=== PATIENT | female | born 1950 | race African-American/Black ===

== ENCOUNTER 2018-03-29 21:41 | Inpatient (IN) | payer MEDICARE, BC ==
[~2018-03-29] VITALS: Ht 160 cm; Wt 96.2 kg
[2018-03-29] MEDS ORDERED: ALBUTEROL (0.083%) 2.5MG/3ML NEB HHN STA (22:06)
[2018-03-29] MEDS ORDERED: IPRATROPIUM BROMIDE (0.02%) 0.5MG/2.5ML NEB HHN STA (22:06)
[2018-03-29] MEDS ORDERED: MAGNESIUM 2 G PREMIX 50 ML IV STA (22:06)
[2018-03-29] MEDS ORDERED: METHYLPREDNISOLONE SOD SUCC 125 MG/2 ML VIAL IV STA (22:06)
[2018-03-29] MEDS ORDERED: LEVOFLOXACIN 500MG PREMIX 100 ML IV ONE (22:15)
[2018-03-29] MEDS ORDERED: FUROSEMIDE 20MG/2ML VIAL IVP ONE (23:00)
[2018-03-29 23:26] LABS: CHLORIDE 109 mEq/L (98-107)
[2018-03-29 23:27] LABS: PARTIAL THROMBOPLASTIN TIME 24.8 sec (23.4-31.0); PROTHROMBIN TIME 9.7 sec (9.1-11.1)
[2018-03-29 23:28] LABS: BASOPHILS % 1.5 % (0.0-2.0); EOSINOPHILS % 10.8 % (0.0-5.0); HEMATOCRIT. 40.9 % (36.0-48.0); HEMOGLOBIN. 13.2 g/dL (12.0-16.0); LYMPHOCYTES % 35.5 % (20.0-50.0); MEAN CORPUSCULAR HEMOGLOBIN 28.7 pg (28.0-32.0); MEAN CORPUSCULAR VOLUME 88.9 fL (81.0-99.0); MEAN PLATELET VOLUME 8.9 fl (7.4-10.4); MONOCYTES % 8.2 % (2.0-8.0); PLATELET 249 x1000/uL (130-400)
[2018-03-29 23:33] LABS: ETHANOL BLOOD < 10 mg/dL
[2018-03-30] VITALS (8 sets, daily range): BP systolic 149–166; BP diastolic 75–102
[2018-03-30 00:40] LABS: BG BASE EXCESS -3.2 mmol/L (-2.0-2.0); BG BILEVEL POS AIRWAY PRESSURE 15/5; BG CARBOXYHEMOGLOBIN 1.8 % (0.5-1.5); BG DEOXYHEMOGLOBIN 3.3 % (0.0-5.0); BG FRACTION INSPIRED OXYGEN 40; BG METHEMOGLOBIN 0.2 % (0.0-1.5); BG OXYGEN SATURATION 96.6 % (92.0-98.5); BG OXYHEMOGLOBIN 94.7 % (94.0-97.0); BG PCO2 51.6 mmHg (35.0-45.0); BG PH 7.285 (7.350-7.450); BG PO2 93.6 mmHg (75.0-100.0); BG SAMPLE SITE RIGHT RADIAL; BG TOTAL HEMOGLOBIN 13.4 g/dL (12.0-18.0); BG VENT MODE MASK - BIPAP; BG VENT RATE 12 set
[2018-03-30] MEDS ORDERED: IPRATROPIUM/ALBUTEROL 0.5-3(2.5)MG/3ML NEB INH PRN (01:00)
[2018-03-30] MEDS ORDERED: LORAZEPAM 0.5MG TABLET PO PRN (01:00)
[2018-03-30] MEDS ORDERED: ONDANSETRON HCL 4MG/2ML VIAL IV PRN (01:00)
[2018-03-30] MEDS ORDERED: MAGNESIUM/ALUMINUM HYDROXIDE/SIMETHICONE 30ML UDC PO PRN (01:00)
[2018-03-30] MEDS ORDERED: GUAIFENESIN 200MG/10ML SUGAR FREE UDC PO PRN (01:00)
[2018-03-30] MEDS: MAGNESIUM 1 G PREMIX 100 ML IV SCH ×2 (02:00→02:10)
[2018-03-30] MEDS ORDERED: ACETAMINOPHEN WITH CODEINE 300/30MG TABLET PO PRN (03:30)
[2018-03-30] MEDS ORDERED: POTASSIUM CHLORIDE 20MEQ TABLET SR PO SCH (04:21)
[2018-03-30] MEDS ORDERED: MVI, ADULT NO.1 10 ML, FOLIC ACID 1 MG, THIAMINE HCL 100 MG in SODIUM CHLORIDE 0.9% 1,0... IV SCH ×4 (10:00)
[2018-03-30] MEDS: METHYLPREDNISOLONE SOD SUCC 125 MG/2 ML VIAL IV SCH ×2 (11:32→18:00)
[2018-03-30] MEDS: GUAIFENESIN 600MG ER TABLET PO SCH ×2 (11:33→20:47)
[2018-03-30] MEDS: CLONIDINE 0.1MG TABLET PO PRN (11:33)
[2018-03-30] MEDS: FAMOTIDINE 20MG TABLET PO SCH ×2 (11:34→20:46)
[2018-03-30] MEDS: IPRATROPIUM/ALBUTEROL 0.5-3(2.5)MG/3ML NEB HHN SCH ×3 (11:52→20:41)
[2018-03-30] MEDS ORDERED: GABA800T97 PO (12:37)
[2018-03-30] MEDS ORDERED: IBUP-2030 MT (12:39)
[2018-03-30] MEDS ORDERED: TERBUTALINE SULFATE 1MG/ML VIAL SUBCUT NR (14:45)
[2018-03-30] MEDS ORDERED: NICOTINE 21MG PATCH TD NR (15:15)
[2018-03-30] MEDS: MONTELUKAST SODIUM 10MG TABLET PO SCH (18:00)
[2018-03-30] MEDS: ACETAMINOPHEN 325MG TABLET PO PRN (18:45)
[2018-03-30] MEDS ORDERED: MEDICATION NOT ON FORMULARY EA (Ibuprofen 1 TAB) PO PRN (19:15)
[2018-03-30] MEDS: LORATADINE 10MG TABLET PO SCH (20:47)
[2018-03-30] MEDS: LEVOFLOXACIN 500MG PREMIX 100 ML IV SCH (21:51)
[2018-03-31] VITALS (12 sets, daily range): BP systolic 142–164; BP diastolic 72–88
[2018-03-31] MEDS: IPRATROPIUM/ALBUTEROL 0.5-3(2.5)MG/3ML NEB HHN SCH ×6 (00:13→20:14)
[2018-03-31] MEDS: METHYLPREDNISOLONE SOD SUCC 125 MG/2 ML VIAL IV SCH ×5 (00:38→23:01)
[2018-03-31 07:51] LABS: CHLORIDE 109 mEq/L (98-107)
[2018-03-31] MEDS: GUAIFENESIN 600MG ER TABLET PO SCH ×2 (08:32→20:27)
[2018-03-31] MEDS: GABAPENTIN 400MG CAPSULE PO SCH ×3 (08:32→17:21)
[2018-03-31] MEDS: NICOTINE 21MG PATCH TD SCH (08:32)
[2018-03-31] MEDS: FAMOTIDINE 20MG TABLET PO SCH ×2 (08:32→20:27)
[2018-03-31] MEDS ORDERED: MEDICATION NOT ON FORMULARY EA (Gabapentin 800 MG) PO SCH (09:00)
[2018-03-31] MEDS ORDERED: PNEUMOCOCCAL 23-VAL P-SAC VAC 0.5 ML IM ONE (09:00)
[2018-03-31] MEDS ORDERED: ENOXAPARIN 40MG/0.4ML SYR SUBCUT SCH (09:00)
[2018-03-31] MEDS: IBUPROFEN 800MG TABLET PO PRN (09:55)
[2018-03-31] MEDS ORDERED: TERBUTALINE SULFATE 1MG/ML VIAL SUBCUT NR (14:15)
[2018-03-31 16:26] LABS: CLARITY URINE CLEAR (CLEAR); COLOR URINE YELLOW (YELLOW); KETONES URINE NEGATIVE (NEGATIVE); LEUKOCYTE ESTERASE URINE NEGATIVE (NEGATIVE); NITRITE URINE NEGATIVE (NEGATIVE); OCCULT BLOOD URINE NEGATIVE (NEGATIVE); PROTEIN URINE TRACE (NEGATIVE); SPECIFIC GRAVITY URINE 1.035 (1.005-1.030); UROBILINOGEN URINE 0.2 E.U./dL (0.2-1.0)
[2018-03-31] MEDS: MONTELUKAST SODIUM 10MG TABLET PO SCH (17:21)
[2018-03-31 17:43] LABS: *AMPHETAMINES SCREEN URINE NEGATIVE (NEGATIVE)
[2018-03-31 17:44] LABS: *BARBITURATES SCREEN URINE NEGATIVE (NEGATIVE); *BENZODIAZEPINES SCREEN URINE NEGATIVE (NEGATIVE); METHADONE URINE SCREEN NEGATIVE (NEGATIVE); OPIATES URINE SCREEN NEGATIVE (NEGATIVE)
[2018-03-31 17:45] LABS: *COCAINE SCREEN URINE PRESUMTIVE POSITIVE (NEGATIVE); CANNABINOID URINE SCREEN NEGATIVE (NEGATIVE); PHENCYCLIDINE URINE SCREEN NEGATIVE (NEGATIVE)
[2018-03-31] MEDS: LORATADINE 10MG TABLET PO SCH (20:28)
[2018-03-31] MEDS: CLONIDINE 0.1MG TABLET PO PRN (20:28)
[2018-03-31] MEDS: ACETAMINOPHEN 325MG TABLET PO PRN (20:34)
[2018-03-31] MEDS: THEOPHYLLINE ANHYDROUS 80 MG/15 ML 120ML PO SCH (22:21)
[2018-03-31] MEDS: LEVOFLOXACIN 500MG PREMIX 100 ML IV SCH (22:22)
[2018-04-01] VITALS (12 sets, daily range): BP systolic 140–172; BP diastolic 66–96
[2018-04-01] MEDS: IPRATROPIUM/ALBUTEROL 0.5-3(2.5)MG/3ML NEB HHN SCH ×6 (00:28→20:31)
[2018-04-01] MEDS: METHYLPREDNISOLONE SOD SUCC 125 MG/2 ML VIAL IV SCH ×2 (05:51→12:44)
[2018-04-01] MEDS: THEOPHYLLINE ANHYDROUS 80 MG/15 ML 120ML PO SCH ×3 (05:52→22:08)
[2018-04-01] MEDS: GABAPENTIN 400MG CAPSULE PO SCH ×3 (08:50→17:28)
[2018-04-01] MEDS: NICOTINE 21MG PATCH TD SCH (08:50)
[2018-04-01] MEDS: ENOXAPARIN 30MG/0.3ML SYR SUBCUT SCH ×2 (08:50→20:05)
[2018-04-01] MEDS: GUAIFENESIN 600MG ER TABLET PO SCH ×2 (08:51→20:05)
[2018-04-01] MEDS: IBUPROFEN 800MG TABLET PO PRN (08:51)
[2018-04-01] MEDS: FAMOTIDINE 20MG TABLET PO SCH ×2 (08:52→20:05)
[2018-04-01] MEDS ORDERED: METHYLPREDNISOLONE SOD SUCC 40 MG/ML VIAL IV SCH (14:00)
[2018-04-01] MEDS: ACETAMINOPHEN 325MG TABLET PO PRN (14:53)
[2018-04-01] MEDS: MONTELUKAST SODIUM 10MG TABLET PO SCH (17:28)
[2018-04-01] MEDS: LORATADINE 10MG TABLET PO SCH (20:04)
[2018-04-01] MEDS: CLONIDINE 0.1MG TABLET PO PRN (20:05)
[2018-04-01] MEDS: METHYLPREDNISOLONE SOD SUCC 40 MG/ML VIAL IV SCH (20:05)
[2018-04-01] MEDS: LEVOFLOXACIN 500MG TABLET PO SCH (22:08)
[2018-04-02] VITALS (10 sets, daily range): BP systolic 128–165; BP diastolic 60–86
[2018-04-02] MEDS: IPRATROPIUM/ALBUTEROL 0.5-3(2.5)MG/3ML NEB HHN SCH ×6 (00:16→21:26)
[2018-04-02] MEDS: METHYLPREDNISOLONE SOD SUCC 40 MG/ML VIAL IV SCH ×3 (06:23→22:21)
[2018-04-02] MEDS: THEOPHYLLINE ANHYDROUS 80 MG/15 ML 120ML PO SCH ×3 (06:24→22:22)
[2018-04-02] MEDS: CLONIDINE 0.1MG TABLET PO PRN (06:25)
[2018-04-02] MEDS: IBUPROFEN 800MG TABLET PO PRN ×2 (06:26→17:18)
[2018-04-02] MEDS: GUAIFENESIN 600MG ER TABLET PO SCH ×2 (08:57→22:22)
[2018-04-02] MEDS: GABAPENTIN 400MG CAPSULE PO SCH ×3 (08:57→16:51)
[2018-04-02] MEDS: FAMOTIDINE 20MG TABLET PO SCH ×2 (08:57→22:22)
[2018-04-02] MEDS: ENOXAPARIN 30MG/0.3ML SYR SUBCUT SCH ×2 (08:58→22:21)
[2018-04-02] MEDS: NICOTINE 21MG PATCH TD SCH (08:58)
[2018-04-02] MEDS: MONTELUKAST SODIUM 10MG TABLET PO SCH (16:51)
[2018-04-02] MEDS: BUDESONIDE 0.5MG/2ML NEB HHN SCH (21:27)
[2018-04-02] MEDS: LEVOFLOXACIN 500MG TABLET PO SCH (22:21)
[2018-04-02] MEDS: LORATADINE 10MG TABLET PO SCH (22:21)
[2018-04-03] VITALS: BP 134/60
[2018-04-03] MEDS: IPRATROPIUM/ALBUTEROL 0.5-3(2.5)MG/3ML NEB HHN SCH ×6 (00:21→20:14)
[2018-04-03 04:00] VITALS: BP 140/74
[2018-04-03] MEDS: IBUPROFEN 800MG TABLET PO PRN ×2 (04:33→15:29)
[2018-04-03] MEDS: METHYLPREDNISOLONE SOD SUCC 40 MG/ML VIAL IV SCH ×3 (06:26→21:25)
[2018-04-03] MEDS: THEOPHYLLINE ANHYDROUS 80 MG/15 ML 120ML PO SCH ×3 (06:28→21:25)
[2018-04-03 08:00] VITALS: BP 156/72
[2018-04-03] MEDS: NICOTINE 21MG PATCH TD SCH (08:39)
[2018-04-03] MEDS: ENOXAPARIN 30MG/0.3ML SYR SUBCUT SCH ×2 (08:39→20:33)
[2018-04-03] MEDS: GABAPENTIN 400MG CAPSULE PO SCH ×3 (08:39→17:27)
[2018-04-03] MEDS: FAMOTIDINE 20MG TABLET PO SCH ×2 (08:39→20:33)
[2018-04-03] MEDS: GUAIFENESIN 600MG ER TABLET PO SCH ×2 (08:39→20:33)
[2018-04-03] MEDS: BUDESONIDE 0.5MG/2ML NEB HHN SCH ×2 (09:43→20:14)
[2018-04-03 10:36] LABS: CHLORIDE 103 mEq/L (98-107)
[2018-04-03] MEDS: CLONIDINE 0.1MG TABLET PO PRN (11:32)
[2018-04-03 12:00] VITALS: BP 138/63
[2018-04-03] MEDS ORDERED: TERBUTALINE SULFATE 1MG/ML VIAL SUBCUT NR (14:30)
[2018-04-03 16:00] VITALS: BP 105/60
[2018-04-03] MEDS: MONTELUKAST SODIUM 10MG TABLET PO SCH (17:27)
[2018-04-03] MEDS: DILTIAZEM HCL 30MG TABLET PO SCH (17:28)
[2018-04-03 20:00] VITALS: BP 137/61
[2018-04-03] MEDS: LORATADINE 10MG TABLET PO SCH (20:33)
[2018-04-03] MEDS: ACETAMINOPHEN 325MG TABLET PO PRN (20:33)
[2018-04-03] MEDS: LEVOFLOXACIN 500MG TABLET PO SCH (21:25)
[2018-04-04] MEDS: IPRATROPIUM/ALBUTEROL 0.5-3(2.5)MG/3ML NEB HHN SCH ×6 (00:14→21:18)
[2018-04-04 00:15] VITALS: BP 148/62
[2018-04-04] MEDS: IBUPROFEN 800MG TABLET PO PRN ×4 (00:33→17:17)
[2018-04-04] MEDS: DILTIAZEM HCL 30MG TABLET PO SCH ×3 (00:33→12:09)
[2018-04-04 04:00] VITALS: BP 150/75
[2018-04-04] MEDS: METHYLPREDNISOLONE SOD SUCC 40 MG/ML VIAL IV SCH ×3 (05:08→21:07)
[2018-04-04] MEDS: THEOPHYLLINE ANHYDROUS 80 MG/15 ML 120ML PO SCH ×3 (05:09→22:14)
[2018-04-04] MEDS: NICOTINE 21MG PATCH TD SCH (08:38)
[2018-04-04] MEDS: GUAIFENESIN 600MG ER TABLET PO SCH ×2 (08:38→21:45)
[2018-04-04] MEDS: ENOXAPARIN 30MG/0.3ML SYR SUBCUT SCH ×2 (08:38→21:07)
[2018-04-04] MEDS: FAMOTIDINE 20MG TABLET PO SCH ×2 (08:38→21:06)
[2018-04-04] MEDS: GABAPENTIN 400MG CAPSULE PO SCH ×3 (08:38→17:17)
[2018-04-04] MEDS: BUDESONIDE 0.5MG/2ML NEB HHN SCH ×2 (09:19→21:18)
[2018-04-04 12:00] VITALS: BP 162/82
[2018-04-04] MEDS: DILTIAZEM HCL 60MG TABLET PO SCH ×2 (14:43→21:06)
[2018-04-04 16:00] VITALS: BP 126/66
[2018-04-04] MEDS: MONTELUKAST SODIUM 10MG TABLET PO SCH (17:17)
[2018-04-04 20:00] VITALS: BP 145/67
[2018-04-04] MEDS: LORATADINE 10MG TABLET PO SCH (21:07)
[2018-04-04] MEDS: LEVOFLOXACIN 500MG TABLET PO SCH (21:45)
[2018-04-05] VITALS (7 sets, daily range): BP systolic 92–170; BP diastolic 48–75
[2018-04-05] MEDS: IPRATROPIUM/ALBUTEROL 0.5-3(2.5)MG/3ML NEB HHN SCH ×6 (01:22→20:42)
[2018-04-05] MEDS: DILTIAZEM HCL 60MG TABLET PO SCH (05:16)
[2018-04-05] MEDS: CLONIDINE 0.1MG TABLET PO PRN (05:16)
[2018-04-05] MEDS: THEOPHYLLINE ANHYDROUS 80 MG/15 ML 120ML PO SCH ×3 (05:16→21:15)
[2018-04-05] MEDS: BUDESONIDE 0.5MG/2ML NEB HHN SCH (08:00)
[2018-04-05] MEDS: METHYLPREDNISOLONE SOD SUCC 40 MG/ML VIAL IV SCH ×2 (09:25→17:17)
[2018-04-05] MEDS: ENOXAPARIN 30MG/0.3ML SYR SUBCUT SCH ×2 (09:25→21:10)
[2018-04-05] MEDS: FAMOTIDINE 20MG TABLET PO SCH ×2 (09:26→21:10)
[2018-04-05] MEDS: GUAIFENESIN 600MG ER TABLET PO SCH ×2 (09:26→21:10)
[2018-04-05] MEDS: NICOTINE 21MG PATCH TD SCH (09:26)
[2018-04-05] MEDS: GABAPENTIN 400MG CAPSULE PO SCH ×3 (09:26→17:17)
[2018-04-05] MEDS: IBUPROFEN 800MG TABLET PO PRN ×2 (09:39→17:28)
[2018-04-05] MEDS: DILTIAZEM HCL 240MG ER (24HR) PO SCH (13:30)
[2018-04-05] MEDS: MONTELUKAST SODIUM 10MG TABLET PO SCH (17:17)
[2018-04-05] MEDS: LORATADINE 10MG TABLET PO SCH (21:10)
[2018-04-05] MEDS: ACETAMINOPHEN 325MG TABLET PO PRN (21:11)
[2018-04-05] MEDS: LEVOFLOXACIN 500MG TABLET PO SCH (21:12)
[2018-04-06] VITALS: BP 155/68
[2018-04-06] MEDS: IPRATROPIUM/ALBUTEROL 0.5-3(2.5)MG/3ML NEB HHN SCH ×6 (00:46→21:12)
[2018-04-06] MEDS: IBUPROFEN 800MG TABLET PO PRN ×2 (03:28→17:15)
[2018-04-06] MEDS: CLONIDINE 0.1MG TABLET PO PRN (03:29)
[2018-04-06] MEDS: ACETAMINOPHEN 325MG TABLET PO PRN (03:42)
[2018-04-06 04:00] VITALS: BP 160/70
[2018-04-06] MEDS: THEOPHYLLINE ANHYDROUS 80 MG/15 ML 120ML PO SCH ×3 (05:51→21:23)
[2018-04-06 07:46] LABS: HEMATOCRIT 36.3 % (36.0-48.0); HEMOGLOBIN 11.9 g/dL (12.0-16.0); MEAN CORPUSCULAR HEMOGLOBIN 28.9 pg (28.0-32.0); MEAN CORPUSCULAR VOLUME 87.9 fL (81.0-99.0); PLATELET 225 x1000/uL (130-400); RED BLOOD CELL COUNT 4.13 mill/uL (4.2-5.4); RED CELL DISTRIBUTION WIDTH 15.5 % (11.6-14.6)
[2018-04-06 08:00] VITALS: BP 127/63
[2018-04-06] MEDS: NICOTINE 21MG PATCH TD SCH (08:59)
[2018-04-06] MEDS: ENOXAPARIN 30MG/0.3ML SYR SUBCUT SCH ×2 (08:59→21:22)
[2018-04-06] MEDS: FAMOTIDINE 20MG TABLET PO SCH ×2 (09:00→21:23)
[2018-04-06] MEDS: GABAPENTIN 400MG CAPSULE PO SCH ×3 (09:00→17:15)
[2018-04-06] MEDS: DILTIAZEM HCL 240MG ER (24HR) PO SCH (09:00)
[2018-04-06] MEDS: METHYLPREDNISOLONE SOD SUCC 40 MG/ML VIAL IV SCH (09:00)
[2018-04-06] MEDS: GUAIFENESIN 600MG ER TABLET PO SCH ×2 (09:06→21:23)
[2018-04-06] MEDS: DIPHENHYDRAMINE 50MG/ML VIAL IV PRN ×2 (11:03→17:15)
[2018-04-06 12:00] VITALS: BP 100/55
[2018-04-06] MEDS: BUDESONIDE 0.5MG/2ML NEB HHN SCH ×2 (13:10→21:14)
[2018-04-06 16:00] VITALS: BP 148/67
[2018-04-06] MEDS: MONTELUKAST SODIUM 10MG TABLET PO SCH (17:15)
[2018-04-06 20:00] VITALS: BP 126/56
[2018-04-06] MEDS: LORATADINE 10MG TABLET PO SCH (21:23)
[2018-04-06] MEDS: HYDROCORTISONE 1% CREAM 30GM TOP SCH (21:41)
[2018-04-06] MEDS: LEVOFLOXACIN 500MG TABLET PO SCH (23:51)
[2018-04-07] VITALS: BP 133/60
[2018-04-07] MEDS: IPRATROPIUM/ALBUTEROL 0.5-3(2.5)MG/3ML NEB HHN SCH ×5 (00:51→16:34)
[2018-04-07] MEDS: DIPHENHYDRAMINE 50MG/ML VIAL IV PRN ×2 (02:50→09:47)
[2018-04-07] MEDS: IBUPROFEN 800MG TABLET PO PRN (02:55)
[2018-04-07 04:00] VITALS: BP 151/60
[2018-04-07] MEDS: HYDROCORTISONE 1% CREAM 30GM TOP SCH ×2 (05:17→13:43)
[2018-04-07] MEDS: THEOPHYLLINE ANHYDROUS 80 MG/15 ML 120ML PO SCH ×3 (05:17→13:47)
[2018-04-07 08:00] VITALS: BP 148/70
[2018-04-07] MEDS: BUDESONIDE 0.5MG/2ML NEB HHN SCH (09:07)
[2018-04-07] MEDS: METHYLPREDNISOLONE SOD SUCC 40 MG/ML VIAL IV SCH (09:22)
[2018-04-07] MEDS: NICOTINE 21MG PATCH TD SCH (09:23)
[2018-04-07] MEDS: GABAPENTIN 400MG CAPSULE PO SCH ×3 (09:23→17:00)
[2018-04-07] MEDS: DILTIAZEM HCL 240MG ER (24HR) PO SCH (09:23)
[2018-04-07] MEDS: GUAIFENESIN 600MG ER TABLET PO SCH (09:23)
[2018-04-07] MEDS: FAMOTIDINE 20MG TABLET PO SCH (09:23)
[2018-04-07] MEDS: ENOXAPARIN 30MG/0.3ML SYR SUBCUT SCH (09:24)
[2018-04-07 12:00] VITALS: BP 137/59
[2018-04-07 15:18] VITALS: BP 137/59
[2018-04-07 16:00] VITALS: BP 116/82
[2018-04-07] MEDS: MONTELUKAST SODIUM 10MG TABLET PO SCH (17:00)
== END 2018-04-07 18:30 | disposition home or self-care (01) | DRG 871 ==
LOC: ER 21:41 → EDBD 21:41 → 5EST 23:50 → EDBEDREQTM 23:59 → EDBEDREQ 23:59 → ENRESERV 03-30 06:47 → CANRESERV 03-30 06:47 → ENRESERV 03-30 06:57 → 8WST 04-02 15:31
PROVIDERS: ADMIT Internal Medicine; ATTEND Internal Medicine
PROC: 5A09457 Assistance with Respiratory Ventilation, 24-96 Consecutive Hours, Continuous Positive Airway Pressure (ICD-10-PCS; principal; 2018-03-30)
PROC: 5A09357 Assistance with Respiratory Ventilation, Less than 24 Consecutive Hours, Continuous Positive Airway Pressure (ICD-10-PCS; 2018-04-02)
DX: A41.9 Sepsis, unspecified organism (principal); J96.00 Acute respiratory failure, unspecified whether with hypoxia or hypercapnia; J18.9 Pneumonia, unspecified organism; J44.1 Chronic obstructive pulmonary disease with (acute) exacerbation; J44.0 Chronic obstructive pulmonary disease with (acute) lower respiratory infection; J45.901 Unspecified asthma with (acute) exacerbation; I47.2 Ventricular tachycardia; E87.2 Acidosis; M19.90 Unspecified osteoarthritis, unspecified site; I10 Essential (primary) hypertension; E87.6 Hypokalemia; G89.4 Chronic pain syndrome; R07.89 Other chest pain; F17.210 Nicotine dependence, cigarettes, uncomplicated; F14.10 Cocaine abuse, uncomplicated; D72.1 Eosinophilia; T40.5X1A Poisoning by cocaine, accidental (unintentional), initial encounter; Z96.643 Presence of artificial hip joint, bilateral; Z96.653 Presence of artificial knee joint, bilateral; Y92.89 Other specified places as the place of occurrence of the external cause; Z82.5 Family history of asthma and other chronic lower respiratory diseases; Z83.3 Family history of diabetes mellitus; Z71.6 Tobacco abuse counseling; Z71.51 Drug abuse counseling and surveillance of drug abuser
CPT/HCPCS: 36415; 36600; 71045; 71250; 80048; 80053; 80305; 81003; 82375; 82805; 83605; 83690; 83735; 83880; 84484; 85025; 85027; 85610; 85730; 87040; 87086; 90732; 93005; 93306; 93970; 94618; 94640; 94644; 94660; 96365; 96375; 97162; 97166; 99291; C1893; G0482; J1200; J1650; J1940; J1956; J2920; J2930; J3105; J3411; J3475; J3490; J7030; J7050; J7611; J7620; J7626

== ENCOUNTER 2018-05-16 08:34 | Inpatient (IN) | payer MEDICARE, BC ==
[~2018-05-16] VITALS: Ht 160 cm; Wt 103.4 kg
[~2018-05-16 08:34] MED LIST: GABA800T97 PO; IBUP-2030 MT
[2018-05-16] MEDS ORDERED: ALBUTEROL (0.083%) 2.5MG/3ML NEB HHN STA ×2 (08:39→10:05)
[2018-05-16] MEDS ORDERED: METHYLPREDNISOLONE SOD SUCC 125 MG/2 ML VIAL IV STA (08:39)
[2018-05-16] MEDS ORDERED: IPRATROPIUM BROMIDE (0.02%) 0.5MG/2.5ML NEB HHN STA (08:39)
[2018-05-16 09:28] LABS: CHLORIDE 110 mEq/L (98-107)
[2018-05-16 09:34] LABS: BASOPHILS % 0.9 % (0.0-2.0); EOSINOPHILS % 12.3 % (0.0-5.0); HEMATOCRIT. 42.4 % (36.0-48.0); HEMOGLOBIN. 14.1 g/dL (12.0-16.0); LYMPHOCYTES % 41.1 % (20.0-50.0); MEAN CORPUSCULAR HEMOGLOBIN 29.6 pg (28.0-32.0); MEAN CORPUSCULAR VOLUME 89.1 fL (81.0-99.0); MONOCYTES % 7.6 % (2.0-8.0); NEUTROPHILS % 38.1 % (40.0-76.0); PLATELET 236 x1000/uL (130-400); RED BLOOD CELL COUNT 4.76 mill/uL (4.2-5.4); RED CELL DISTRIBUTION WIDTH 15.5 % (11.6-14.6)
[2018-05-16 14:00] VITALS: BP 156/63
[2018-05-16] MEDS ORDERED: IPRATROPIUM/ALBUTEROL 0.5-3(2.5)MG/3ML NEB INH PRN (14:30)
[2018-05-16] MEDS ORDERED: LORAZEPAM 0.5MG TABLET PO PRN (14:30)
[2018-05-16] MEDS ORDERED: MAGNESIUM HYDROXIDE 400MG/5ML 30ML UDC PO PRN (14:30)
[2018-05-16] MEDS ORDERED: MAGNESIUM/ALUMINUM HYDROXIDE/SIMETHICONE 30ML UDC PO PRN (14:30)
[2018-05-16] MEDS ORDERED: ACETAMINOPHEN 325MG TABLET PO PRN (14:30)
[2018-05-16] MEDS ORDERED: ONDANSETRON HCL 4MG/2ML INJ IV PRN (14:30)
[2018-05-16] MEDS ORDERED: TEMAZEPAM 15MG CAPSULE PO PRN (14:30)
[2018-05-16] MEDS ORDERED: GUAIFENESIN 200MG/10ML SUGAR FREE UDC PO PRN (14:30)
[2018-05-16] MEDS: ENOXAPARIN 30MG/0.3ML SYR SUBCUT SCH (15:33)
[2018-05-16] MEDS: FAMOTIDINE 20MG TABLET PO SCH (15:33)
[2018-05-16 15:44] VITALS: BP 156/63
[2018-05-16 16:00] VITALS: BP 151/71
[2018-05-16] MEDS: ACETAMINOPHEN WITH CODEINE 300/60MG TABLET PO PRN ×2 (16:29→22:03)
[2018-05-16] MEDS: IPRATROPIUM/ALBUTEROL 0.5-3(2.5)MG/3ML NEB HHN SCH ×2 (16:29→21:34)
[2018-05-16] MEDS: DOCUSATE SODIUM 100MG CAPSULE PO SCH (16:29)
[2018-05-16] MEDS: METHYLPREDNISOLONE SOD SUCC 40 MG/ML VIAL IV SCH (16:30)
[2018-05-16] MEDS: THEOPHYLLINE ANHYDROUS 80 MG/15 ML 120ML PO SCH (17:40)
[2018-05-16] MEDS: IBUPROFEN 400MG TABLET PO PRN (17:40)
[2018-05-16 18:00] VITALS: BP 154/82
[2018-05-16 20:00] VITALS: BP 157/76
[2018-05-16 22:00] VITALS: BP 142/69
[2018-05-16] MEDS: SODIUM CHLORIDE 0.9% INJ 3ML FLUSH IVF SCH (22:00)
[2018-05-16] MEDS: DILTIAZEM HCL 90MG TABLET PO SCH (22:04)
[2018-05-16] MEDS: GABAPENTIN 400MG CAPSULE PO SCH (22:04)
[2018-05-17] VITALS (13 sets, daily range): BP systolic 125–157; BP diastolic 58–98
[2018-05-17] MEDS: IPRATROPIUM/ALBUTEROL 0.5-3(2.5)MG/3ML NEB HHN SCH ×6 (01:01→20:43)
[2018-05-17] MEDS: METHYLPREDNISOLONE SOD SUCC 40 MG/ML VIAL IV SCH ×3 (01:29→17:00)
[2018-05-17] MEDS: DIPHENHYDRAMINE 50MG/ML VIAL IV PRN (04:09)
[2018-05-17] MEDS: SODIUM CHLORIDE 0.9% INJ 3ML FLUSH IVF SCH ×3 (06:00→21:42)
[2018-05-17] MEDS: ENOXAPARIN 30MG/0.3ML SYR SUBCUT SCH ×2 (06:02→17:01)
[2018-05-17] MEDS: GABAPENTIN 400MG CAPSULE PO SCH ×3 (06:02→21:37)
[2018-05-17] MEDS: DILTIAZEM HCL 90MG TABLET PO SCH ×3 (06:03→21:37)
[2018-05-17] MEDS: THEOPHYLLINE ANHYDROUS 80 MG/15 ML 120ML PO SCH ×2 (06:04→17:01)
[2018-05-17] MEDS: IBUPROFEN 400MG TABLET PO PRN ×2 (06:04→13:13)
[2018-05-17] MEDS: FAMOTIDINE 20MG TABLET PO SCH (08:15)
[2018-05-17] MEDS: DOCUSATE SODIUM 100MG CAPSULE PO SCH ×2 (08:15→17:00)
[2018-05-17] MEDS: LORATADINE 10MG TABLET PO SCH (08:16)
[2018-05-17] MEDS: ACETAMINOPHEN WITH CODEINE 300/60MG TABLET PO PRN ×2 (08:16→21:41)
[2018-05-17 08:42] LABS: BG BASE EXCESS -3.2 mmol/L (-2.0-2.0); BG CARBOXYHEMOGLOBIN 0.6 % (0.5-1.5); BG DEOXYHEMOGLOBIN 4.3 % (0.0-5.0); BG HCO3 ACT 22.2 mmol/L (22.0-26.0); BG METHEMOGLOBIN 0.2 % (0.0-1.5); BG OXYGEN SATURATION 95.7 % (92.0-98.5); BG OXYHEMOGLOBIN 94.9 % (94.0-97.0); BG PCO2 41.3 mmHg (35.0-45.0); BG PH 7.349 (7.350-7.450); BG PO2 82.2 mmHg (75.0-100.0); BG SAMPLE SITE LEFT RADIAL; BG TOTAL HEMOGLOBIN 13.9 g/dL (12.0-18.0); BG VENT MODE NASAL CANNULA
[2018-05-18] VITALS (11 sets, daily range): BP systolic 120–150; BP diastolic 63–89
[2018-05-18] MEDS: IPRATROPIUM/ALBUTEROL 0.5-3(2.5)MG/3ML NEB HHN SCH ×5 (00:36→15:47)
[2018-05-18] MEDS: DIPHENHYDRAMINE 50MG/ML VIAL IV PRN (00:55)
[2018-05-18] MEDS: METHYLPREDNISOLONE SOD SUCC 40 MG/ML VIAL IV SCH ×2 (00:55→09:39)
[2018-05-18] MEDS: ACETAMINOPHEN WITH CODEINE 300/60MG TABLET PO PRN (05:40)
[2018-05-18] MEDS: GABAPENTIN 400MG CAPSULE PO SCH ×2 (05:40→13:08)
[2018-05-18] MEDS: ENOXAPARIN 30MG/0.3ML SYR SUBCUT SCH (05:41)
[2018-05-18] MEDS: DILTIAZEM HCL 90MG TABLET PO SCH ×2 (05:41→13:08)
[2018-05-18] MEDS: SODIUM CHLORIDE 0.9% INJ 3ML FLUSH IVF SCH ×2 (05:42→13:12)
[2018-05-18] MEDS: THEOPHYLLINE ANHYDROUS 80 MG/15 ML 120ML PO SCH (05:43)
[2018-05-18 06:46] LABS: BASOPHILS % 0.3 % (0.0-2.0); HEMATOCRIT. 39.5 % (36.0-48.0); LYMPHOCYTES % 8.6 % (20.0-50.0); MEAN CORPUSCULAR HEMOGLOBIN 29.2 pg (28.0-32.0); MEAN PLATELET VOLUME 9.2 fl (7.4-10.4); MONOCYTES % 2.5 % (2.0-8.0); NEUTROPHILS % 88.6 % (40.0-76.0); PLATELET 256 x1000/uL (130-400); RED BLOOD CELL COUNT 4.44 mill/uL (4.2-5.4); RED CELL DISTRIBUTION WIDTH 15.4 % (11.6-14.6)
[2018-05-18 07:04] LABS: CHLORIDE 104 mEq/L (98-107)
[2018-05-18] MEDS: LORATADINE 10MG TABLET PO SCH (09:39)
[2018-05-18] MEDS: DOCUSATE SODIUM 100MG CAPSULE PO SCH (09:39)
[2018-05-18] MEDS: IBUPROFEN 400MG TABLET PO PRN (09:41)
[2018-05-18] MEDS: FAMOTIDINE 20MG TABLET PO SCH (13:09)
== END 2018-05-18 16:44 | disposition home or self-care (01) | DRG 205 ==
LOC: ER 08:41 → 3WST 10:47 → EDBEDREQ 10:50 → ENRESERV 12:08
PROVIDERS: ADMIT Internal Medicine; ATTEND Internal Medicine
PROC: 5A09357 Assistance with Respiratory Ventilation, Less than 24 Consecutive Hours, Continuous Positive Airway Pressure (ICD-10-PCS; principal; 2018-05-16)
DX: J68.0 Bronchitis and pneumonitis due to chemicals, gases, fumes and vapors (principal); J96.01 Acute respiratory failure with hypoxia; E46 Unspecified protein-calorie malnutrition; Z68.41 Body mass index [BMI] 40.0-44.9, adult; S20.212A Contusion of left front wall of thorax, initial encounter; I11.9 Hypertensive heart disease without heart failure; F17.200 Nicotine dependence, unspecified, uncomplicated; F14.10 Cocaine abuse, uncomplicated; G89.29 Other chronic pain; H26.9 Unspecified cataract; M19.90 Unspecified osteoarthritis, unspecified site; Z96.643 Presence of artificial hip joint, bilateral; Z96.653 Presence of artificial knee joint, bilateral; W18.39XA Other fall on same level, initial encounter; K30 Functional dyspepsia; F41.9 Anxiety disorder, unspecified; K59.00 Constipation, unspecified; G47.00 Insomnia, unspecified; J44.9 Chronic obstructive pulmonary disease, unspecified; Y93.89 Activity, other specified; Z82.5 Family history of asthma and other chronic lower respiratory diseases; Z79.899 Other long term (current) drug therapy; Y99.8 Other external cause status; Z83.3 Family history of diabetes mellitus; Y92.098 Other place in other non-institutional residence as the place of occurrence of the external cause
CPT/HCPCS: 36415; 36600; 71045; 71100; 80048; 80053; 82375; 82805; 83880; 84484; 85025; 93005; 94640; 94644; 94660; 96374; 99291; J1200; J1650; J2920; J2930; J7611; J7620

== ENCOUNTER 2018-07-30 15:23 | Inpatient (IN) | payer MEDICARE, BC ==
[~2018-07-30] VITALS: Ht 160 cm; Wt 90.7 kg
[2018-07-30 15:23] VITALS: BP 140/75
[2018-07-30 15:56] VITALS: BP 140/75
[2018-07-30] MEDS ORDERED: IPRATROPIUM/ALBUTEROL 0.5-3(2.5)MG/3ML NEB HHN PRN (18:00)
[2018-07-30] MEDS ORDERED: BENZONATATE 100MG CAPSULE PO PRN (18:00)
[2018-07-30] MEDS ORDERED: DEXTROSE 50% WATER 50ML SYRINGE IV PRN (18:00)
[2018-07-30] MEDS: METHYLPREDNISOLONE SOD SUCC 40 MG/ML VIAL IV SCH (18:17)
[2018-07-30] MEDS: ACETAMINOPHEN WITH CODEINE 300/30MG TABLET PO PRN (18:19)
[2018-07-30 20:00] VITALS: BP 111/63
[2018-07-30] MEDS: IPRATROPIUM BROMIDE (0.02%) 0.5MG/2.5ML NEB HHN SCH (20:15)
[2018-07-30] MEDS: AMLODIPINE 5MG TABLET PO SCH (21:00)
[2018-07-30] MEDS: BLOOD SUGAR DIAGNOSTIC STRIP TEST SCH (21:46)
[2018-07-30] MEDS: FAMOTIDINE 20MG TABLET PO SCH (21:49)
[2018-07-30] MEDS: INSULIN LISPRO 100 UNITS/ML SUBCUT SCH (21:50)
[2018-07-31] MEDS: ACETAMINOPHEN WITH CODEINE 300/30MG TABLET PO PRN ×3 (00:54→11:48)
[2018-07-31] MEDS: IPRATROPIUM BROMIDE (0.02%) 0.5MG/2.5ML NEB HHN SCH ×3 (00:59→13:59)
[2018-07-31] MEDS: METHYLPREDNISOLONE SOD SUCC 40 MG/ML VIAL IV SCH (06:51)
[2018-07-31] MEDS: BLOOD SUGAR DIAGNOSTIC STRIP TEST SCH ×4 (06:51→21:15)
[2018-07-31] MEDS: INSULIN LISPRO 100 UNITS/ML SUBCUT SCH ×5 (06:52→21:00)
[2018-07-31 07:31] LABS: HEMATOCRIT. 40.6 % (36.0-48.0); HEMOGLOBIN. 13.1 g/dL (12.0-16.0); MEAN CORPUSCULAR HEMOGLOBIN 28.6 pg (28.0-32.0); MEAN CORPUSCULAR VOLUME 88.5 fL (81.0-99.0); MEAN PLATELET VOLUME 9.1 fl (7.4-10.4); PLATELET 230 x1000/uL (130-400); RED BLOOD CELL COUNT 4.58 mill/uL (4.2-5.4); RED CELL DISTRIBUTION WIDTH 15.4 % (11.6-14.6)
[2018-07-31 07:39] LABS: CHLORIDE 110 mEq/L (98-107)
[2018-07-31 08:00] LABS: PHOSPHORUS 2.5 mg/dL (2.5-4.9)
[2018-07-31] MEDS ORDERED: LOSARTAN POTASSIUM 100 MG TABLET PO SCH (09:00)
[2018-07-31] MEDS: NICOTINE 14MG PATCH TD SCH (10:07)
[2018-07-31] MEDS: AMLODIPINE 5MG TABLET PO SCH ×2 (10:08→21:00)
[2018-07-31] MEDS: FAMOTIDINE 20MG TABLET PO SCH ×2 (10:08→21:27)
[2018-07-31] MEDS: ENOXAPARIN 40MG/0.4ML SYR SUBCUT SCH (10:19)
[2018-07-31] MEDS: LORATADINE 10MG TABLET PO SCH (11:49)
[2018-07-31 13:18] LABS: PLATELET ESTIMATE NORMAL
[2018-07-31] MEDS ORDERED: TERBUTALINE SULFATE 1MG/ML VIAL SUBCUT SCH (16:00)
[2018-07-31] MEDS: MONTELUKAST SODIUM 10MG TABLET PO SCH (17:55)
[2018-07-31] MEDS: LIDOCAINE 5% PATCH TOP SCH (17:59)
[2018-07-31] MEDS: DIPHENHYDRAMINE 25MG CAPSULE PO PRN (19:18)
[2018-07-31 20:00] VITALS: BP 108/31
[2018-07-31 20:28] LABS: FOLIC ACID (FOLATE) SERUM 12.1 ng/mL (>5.38)
[2018-07-31] MEDS: THEOPHYLLINE ANHYDROUS 80 MG/15 ML 120ML PO SCH (21:28)
[2018-07-31] MEDS: BUDESONIDE 0.5MG/2ML NEB HHN SCH (21:46)
[2018-07-31] MEDS: IPRATROPIUM/ALBUTEROL 0.5-3(2.5)MG/3ML NEB HHN SCH (21:47)
[2018-08-01] MEDS: IPRATROPIUM/ALBUTEROL 0.5-3(2.5)MG/3ML NEB HHN SCH ×4 (02:49→20:53)
[2018-08-01] MEDS: BLOOD SUGAR DIAGNOSTIC STRIP TEST SCH ×4 (06:13→21:08)
[2018-08-01] MEDS: INSULIN LISPRO 100 UNITS/ML SUBCUT SCH ×4 (06:49→21:00)
[2018-08-01] MEDS: THEOPHYLLINE ANHYDROUS 80 MG/15 ML 120ML PO SCH ×3 (06:49→21:08)
[2018-08-01] MEDS: BUDESONIDE 0.5MG/2ML NEB HHN SCH ×2 (07:19→20:52)
[2018-08-01 08:00] VITALS: BP 124/54
[2018-08-01] MEDS: ENOXAPARIN 40MG/0.4ML SYR SUBCUT SCH (09:08)
[2018-08-01] MEDS: NICOTINE 14MG PATCH TD SCH (09:09)
[2018-08-01] MEDS: LIDOCAINE 5% PATCH TOP SCH (09:09)
[2018-08-01] MEDS: FAMOTIDINE 20MG TABLET PO SCH ×2 (09:10→20:40)
[2018-08-01] MEDS: LORATADINE 10MG TABLET PO SCH (09:10)
[2018-08-01] MEDS: PREDNISONE 20MG TABLET PO SCH (09:10)
[2018-08-01] MEDS: LOSARTAN POTASSIUM 50 MG TABLET PO SCH (09:10)
[2018-08-01] MEDS: AMLODIPINE 5MG TABLET PO SCH ×2 (09:11→20:40)
[2018-08-01] MEDS: ACETAMINOPHEN WITH CODEINE 300/30MG TABLET PO PRN ×3 (09:11→20:39)
[2018-08-01] MEDS ORDERED: LIDOCAINE 5% PATCH TOP SCH ×2 (11:30→12:00)
[2018-08-01] MEDS: MONTELUKAST SODIUM 10MG TABLET PO SCH (17:35)
[2018-08-01 20:00] VITALS: BP 128/61
[2018-08-01] MEDS: DIPHENHYDRAMINE 25MG CAPSULE PO PRN (20:39)
[2018-08-02] MEDS: IPRATROPIUM/ALBUTEROL 0.5-3(2.5)MG/3ML NEB HHN SCH ×4 (02:31→20:42)
[2018-08-02] MEDS: ACETAMINOPHEN WITH CODEINE 300/30MG TABLET PO PRN ×3 (03:40→17:20)
[2018-08-02] MEDS: THEOPHYLLINE ANHYDROUS 80 MG/15 ML 120ML PO SCH ×3 (05:18→22:40)
[2018-08-02] MEDS: BLOOD SUGAR DIAGNOSTIC STRIP TEST SCH ×4 (05:31→21:00)
[2018-08-02] MEDS: BUDESONIDE 0.5MG/2ML NEB HHN SCH ×2 (07:31→20:42)
[2018-08-02 08:00] VITALS: BP 111/50
[2018-08-02 08:25] LABS: T4 FREE 0.83 ng/dL (0.76-1.46)
[2018-08-02] MEDS: NICOTINE 14MG PATCH TD SCH (08:51)
[2018-08-02] MEDS: PREDNISONE 20MG TABLET PO SCH (08:53)
[2018-08-02] MEDS: LIDOCAINE 5% PATCH TOP SCH (08:53)
[2018-08-02] MEDS: LOSARTAN POTASSIUM 50 MG TABLET PO SCH (08:53)
[2018-08-02] MEDS: LORATADINE 10MG TABLET PO SCH (08:53)
[2018-08-02] MEDS: FAMOTIDINE 20MG TABLET PO SCH ×2 (08:53→22:38)
[2018-08-02] MEDS: INSULIN LISPRO 100 UNITS/ML SUBCUT SCH ×4 (08:54→21:00)
[2018-08-02] MEDS: AMLODIPINE 5MG TABLET PO SCH ×2 (08:54→21:00)
[2018-08-02] MEDS: ENOXAPARIN 40MG/0.4ML SYR SUBCUT SCH (08:55)
[2018-08-02] MEDS: MONTELUKAST SODIUM 10MG TABLET PO SCH (16:23)
[2018-08-02 20:00] VITALS: BP 102/45
[2018-08-03] MEDS: ACETAMINOPHEN WITH CODEINE 300/30MG TABLET PO PRN ×3 (00:30→13:05)
[2018-08-03] MEDS: IPRATROPIUM/ALBUTEROL 0.5-3(2.5)MG/3ML NEB HHN SCH ×4 (01:59→21:27)
[2018-08-03] MEDS: THEOPHYLLINE ANHYDROUS 80 MG/15 ML 120ML PO SCH ×3 (05:57→21:35)
[2018-08-03] MEDS: BLOOD SUGAR DIAGNOSTIC STRIP TEST SCH ×4 (05:57→21:00)
[2018-08-03] MEDS: BUDESONIDE 0.5MG/2ML NEB HHN SCH ×2 (07:31→21:26)
[2018-08-03 08:00] VITALS: BP 126/56
[2018-08-03] MEDS: INSULIN LISPRO 100 UNITS/ML SUBCUT SCH ×4 (08:07→21:34)
[2018-08-03] MEDS: LOSARTAN POTASSIUM 50 MG TABLET PO SCH (09:00)
[2018-08-03] MEDS: ENOXAPARIN 40MG/0.4ML SYR SUBCUT SCH (09:28)
[2018-08-03] MEDS: FAMOTIDINE 20MG TABLET PO SCH ×2 (09:29→21:32)
[2018-08-03] MEDS: AMLODIPINE 5MG TABLET PO SCH ×2 (09:29→21:00)
[2018-08-03] MEDS: PREDNISONE 20MG TABLET PO SCH (09:29)
[2018-08-03] MEDS: LORATADINE 10MG TABLET PO SCH (09:29)
[2018-08-03] MEDS: LIDOCAINE 5% PATCH TOP SCH (09:30)
[2018-08-03] MEDS: NICOTINE 14MG PATCH TD SCH (09:31)
[2018-08-03] MEDS: MONTELUKAST SODIUM 10MG TABLET PO SCH (17:24)
[2018-08-03 20:00] VITALS: BP 110/52
[2018-08-03] MEDS ORDERED: BUDESONIDE 0.5MG/2ML NEB ONE (21:30)
[2018-08-04] MEDS: ACETAMINOPHEN WITH CODEINE 300/30MG TABLET PO PRN ×3 (01:04→15:22)
[2018-08-04] MEDS: IPRATROPIUM/ALBUTEROL 0.5-3(2.5)MG/3ML NEB HHN SCH ×4 (01:18→21:45)
[2018-08-04] MEDS: DIPHENHYDRAMINE 25MG CAPSULE PO PRN (02:01)
[2018-08-04 06:10] LABS: FOLICLE STIMULATING HORMONE 53.2 mIU/mL (.); PROLACTIN 14.1 ng/mL (4.8-23.3)
[2018-08-04 06:24] LABS: CLARITY URINE CLEAR (CLEAR); COLOR URINE YELLOW (YELLOW); KETONES URINE NEGATIVE (NEGATIVE); LEUKOCYTE ESTERASE URINE TRACE (NEGATIVE); NITRITE URINE NEGATIVE (NEGATIVE); OCCULT BLOOD URINE NEGATIVE (NEGATIVE); PH URINE 7.5 (4.5-8.0); PROTEIN URINE NEGATIVE (NEGATIVE); SPECIFIC GRAVITY URINE 1.017 (1.005-1.030); UROBILINOGEN URINE 0.2 E.U./dL (0.2-1.0)
[2018-08-04] MEDS: BLOOD SUGAR DIAGNOSTIC STRIP TEST SCH ×4 (06:30→21:57)
[2018-08-04] MEDS: THEOPHYLLINE ANHYDROUS 80 MG/15 ML 120ML PO SCH ×3 (06:31→22:01)
[2018-08-04] MEDS: INSULIN LISPRO 100 UNITS/ML SUBCUT SCH ×4 (06:31→21:00)
[2018-08-04 06:56] LABS: HEMATOCRIT. 39.4 % (36.0-48.0); HEMOGLOBIN. 12.9 g/dL (12.0-16.0); MEAN CORPUSCULAR HEMOGLOBIN 28.8 pg (28.0-32.0); MEAN PLATELET VOLUME 8.3 fl (7.4-10.4); PLATELET 241 x1000/uL (130-400); RED BLOOD CELL COUNT 4.48 mill/uL (4.2-5.4); RED CELL DISTRIBUTION WIDTH 15.3 % (11.6-14.6)
[2018-08-04 08:00] VITALS: BP 115/59
[2018-08-04] MEDS: PREDNISONE 20MG TABLET PO SCH (08:53)
[2018-08-04] MEDS: FAMOTIDINE 20MG TABLET PO SCH ×2 (08:53→21:57)
[2018-08-04] MEDS: LORATADINE 10MG TABLET PO SCH (08:54)
[2018-08-04] MEDS: NICOTINE 14MG PATCH TD SCH (08:54)
[2018-08-04] MEDS: ENOXAPARIN 40MG/0.4ML SYR SUBCUT SCH (08:54)
[2018-08-04] MEDS: LOSARTAN POTASSIUM 50 MG TABLET PO SCH (08:59)
[2018-08-04] MEDS: AMLODIPINE 5MG TABLET PO SCH ×2 (08:59→21:57)
[2018-08-04] MEDS: LIDOCAINE 5% PATCH TOP SCH (09:00)
[2018-08-04 09:50] LABS: CHLORIDE 102 mEq/L (98-107)
[2018-08-04 09:54] LABS: PHOSPHORUS 4.3 mg/dL (2.5-4.9)
[2018-08-04 12:08] LABS: PLATELET ESTIMATE NORMAL
[2018-08-04] MEDS: MONTELUKAST SODIUM 10MG TABLET PO SCH (17:10)
[2018-08-04] MEDS ORDERED: ACETAMINOPHEN WITH CODEINE 300/30MG TABLET PO PRN (18:00)
[2018-08-04 20:00] VITALS: BP 109/73
[2018-08-04] MEDS: ENOXAPARIN 30MG/0.3ML SYR SUBCUT SCH (21:57)
[2018-08-05] MEDS: DIPHENHYDRAMINE 25MG CAPSULE PO PRN ×2 (00:08→01:13)
[2018-08-05] MEDS: ACETAMINOPHEN WITH CODEINE 300/30MG TABLET PO PRN ×4 (00:21→15:57)
[2018-08-05] MEDS: IPRATROPIUM/ALBUTEROL 0.5-3(2.5)MG/3ML NEB HHN SCH ×4 (02:05→20:55)
[2018-08-05] MEDS: THEOPHYLLINE ANHYDROUS 80 MG/15 ML 120ML PO SCH ×3 (06:21→21:00)
[2018-08-05] MEDS: BLOOD SUGAR DIAGNOSTIC STRIP TEST SCH ×4 (06:21→20:56)
[2018-08-05 08:45] VITALS: BP 120/56
[2018-08-05] MEDS: LOSARTAN POTASSIUM 50 MG TABLET PO SCH (09:00)
[2018-08-05] MEDS: NICOTINE 14MG PATCH TD SCH (09:25)
[2018-08-05] MEDS: ENOXAPARIN 30MG/0.3ML SYR SUBCUT SCH ×2 (09:25→20:56)
[2018-08-05] MEDS: LIDOCAINE 5% PATCH TOP SCH (09:26)
[2018-08-05] MEDS: FAMOTIDINE 20MG TABLET PO SCH ×2 (09:26→20:56)
[2018-08-05] MEDS: PREDNISONE 10MG TABLET PO SCH (09:26)
[2018-08-05] MEDS: LORATADINE 10MG TABLET PO SCH (09:26)
[2018-08-05] MEDS: AMLODIPINE 5MG TABLET PO SCH ×2 (09:27→20:58)
[2018-08-05] MEDS: MONTELUKAST SODIUM 10MG TABLET PO SCH (16:28)
[2018-08-05] MEDS: INSULIN LISPRO 100 UNITS/ML SUBCUT SCH ×2 (16:51→20:56)
[2018-08-05 20:00] VITALS: BP 110/56
[2018-08-06] MEDS: IPRATROPIUM/ALBUTEROL 0.5-3(2.5)MG/3ML NEB HHN SCH ×4 (01:26→20:04)
[2018-08-06] MEDS: ACETAMINOPHEN WITH CODEINE 300/30MG TABLET PO PRN ×3 (02:41→15:06)
[2018-08-06] MEDS: BLOOD SUGAR DIAGNOSTIC STRIP TEST SCH ×4 (06:39→21:03)
[2018-08-06] MEDS: THEOPHYLLINE ANHYDROUS 80 MG/15 ML 120ML PO SCH ×3 (06:39→21:33)
[2018-08-06 07:15] VITALS: BP 116/56
[2018-08-06] MEDS: ENOXAPARIN 30MG/0.3ML SYR SUBCUT SCH ×2 (08:38→20:59)
[2018-08-06] MEDS: PREDNISONE 10MG TABLET PO SCH (08:38)
[2018-08-06] MEDS: NICOTINE 14MG PATCH TD SCH (08:39)
[2018-08-06] MEDS: AMLODIPINE 5MG TABLET PO SCH ×2 (08:39→20:58)
[2018-08-06] MEDS: FAMOTIDINE 20MG TABLET PO SCH ×2 (08:39→20:58)
[2018-08-06] MEDS: VENLAFAXINE HCL 37.5MG TABLET PO SCH (08:39)
[2018-08-06] MEDS: LORATADINE 10MG TABLET PO SCH (08:39)
[2018-08-06] MEDS: LIDOCAINE 5% PATCH TOP SCH (08:41)
[2018-08-06] MEDS: INSULIN LISPRO 100 UNITS/ML SUBCUT SCH ×4 (09:02→21:35)
[2018-08-06] MEDS ORDERED: MAGNESIUM/ALUMINUM HYDROXIDE/SIMETHICONE 30ML UDC PO PRN (11:00)
[2018-08-06] MEDS ORDERED: ONDANSETRON 4MG ODT PO PRN (11:00)
[2018-08-06 12:49] LABS: BASOPHILS % 0.1 % (0.0-2.0); EOSINOPHILS % 1.1 % (0.0-5.0); HEMATOCRIT. 38.3 % (36.0-48.0); HEMOGLOBIN. 12.5 g/dL (12.0-16.0); LYMPHOCYTES % 9.4 % (20.0-50.0); MEAN CORPUSCULAR HEMOGLOBIN 28.5 pg (28.0-32.0); MEAN CORPUSCULAR VOLUME 87.2 fL (81.0-99.0); MEAN PLATELET VOLUME 8.3 fl (7.4-10.4); MONOCYTES % 12.3 % (2.0-8.0); NEUTROPHILS % 77.1 % (40.0-76.0); PLATELET 250 x1000/uL (130-400); RED BLOOD CELL COUNT 4.39 mill/uL (4.2-5.4); RED CELL DISTRIBUTION WIDTH 15.7 % (11.6-14.6)
[2018-08-06] MEDS: BUDESONIDE 0.5MG/2ML NEB HHN SCH ×2 (13:25→20:04)
[2018-08-06 15:00] VITALS: BP 117/63
[2018-08-06] MEDS: MONTELUKAST SODIUM 10MG TABLET PO SCH (16:57)
[2018-08-06 20:00] VITALS: BP 125/54
[2018-08-06 21:24] LABS: CHLORIDE 101 mEq/L (98-107)
[2018-08-07] MEDS: IPRATROPIUM/ALBUTEROL 0.5-3(2.5)MG/3ML NEB HHN SCH ×2 (01:24→07:47)
[2018-08-07] MEDS: ACETAMINOPHEN WITH CODEINE 300/30MG TABLET PO PRN ×2 (01:58→08:11)
[2018-08-07] MEDS: THEOPHYLLINE ANHYDROUS 80 MG/15 ML 120ML PO SCH (05:31)
[2018-08-07] MEDS: BLOOD SUGAR DIAGNOSTIC STRIP TEST SCH ×2 (06:10→11:15)
[2018-08-07] MEDS: INSULIN LISPRO 100 UNITS/ML SUBCUT SCH ×2 (06:34→12:02)
[2018-08-07] MEDS: BUDESONIDE 0.5MG/2ML NEB HHN SCH (07:47)
[2018-08-07 08:00] VITALS: BP 106/54
[2018-08-07] MEDS: FAMOTIDINE 20MG TABLET PO SCH (08:08)
[2018-08-07] MEDS: NICOTINE 14MG PATCH TD SCH (08:09)
[2018-08-07] MEDS: VENLAFAXINE HCL 37.5MG TABLET PO SCH (08:09)
[2018-08-07] MEDS: LORATADINE 10MG TABLET PO SCH (08:09)
[2018-08-07] MEDS: LIDOCAINE 5% PATCH TOP SCH (08:10)
[2018-08-07] MEDS: AMLODIPINE 5MG TABLET PO SCH (08:11)
[2018-08-07] MEDS: ENOXAPARIN 30MG/0.3ML SYR SUBCUT SCH (08:11)
[2018-08-07 08:48] LABS: CHLORIDE 102 mEq/L (98-107)
[2018-08-07 08:54] LABS: HEMATOCRIT. 35.5 % (36.0-48.0); HEMOGLOBIN. 11.7 g/dL (12.0-16.0); MEAN CORPUSCULAR HEMOGLOBIN 28.7 pg (28.0-32.0); MEAN CORPUSCULAR VOLUME 87.2 fL (81.0-99.0); MEAN PLATELET VOLUME 8.4 fl (7.4-10.4); PLATELET 233 x1000/uL (130-400); RED BLOOD CELL COUNT 4.08 mill/uL (4.2-5.4); RED CELL DISTRIBUTION WIDTH 14.9 % (11.6-14.6)
[2018-08-07] MEDS ORDERED: PREDNISONE 10MG TABLET PO SCH (09:00)
[2018-08-07 10:28] VITALS: BP 106/54
[2018-08-07 14:11] LABS: PLATELET ESTIMATE NORMAL
[2018-08-07 17:06] LABS: 25-HYDROXY VITAMIN D3 13 ng/mL (.)
== END 2018-08-07 13:10 | disposition home health service (06) | DRG 562 ==
PROVIDERS: ADMIT Physical Medicine & Rehabilitation Spinal Cord Injury Medicine; ATTEND Internal Medicine Nephrology
PROC: 5A09357 Assistance with Respiratory Ventilation, Less than 24 Consecutive Hours, Continuous Positive Airway Pressure (ICD-10-PCS; principal; 2018-07-31)
DX: S42.401A Unspecified fracture of lower end of right humerus, initial encounter for closed fracture (principal); J96.02 Acute respiratory failure with hypercapnia; J44.1 Chronic obstructive pulmonary disease with (acute) exacerbation; J45.901 Unspecified asthma with (acute) exacerbation; J68.0 Bronchitis and pneumonitis due to chemicals, gases, fumes and vapors; F33.1 Major depressive disorder, recurrent, moderate; E66.9 Obesity, unspecified; I10 Essential (primary) hypertension; R53.81 Other malaise; E11.36 Type 2 diabetes mellitus with diabetic cataract; F17.210 Nicotine dependence, cigarettes, uncomplicated; T38.0X5A Adverse effect of glucocorticoids and synthetic analogues, initial encounter; R26.9 Unspecified abnormalities of gait and mobility; F14.10 Cocaine abuse, uncomplicated; F11.10 Opioid abuse, uncomplicated; M19.90 Unspecified osteoarthritis, unspecified site; Z96.653 Presence of artificial knee joint, bilateral; Z96.643 Presence of artificial hip joint, bilateral; Z68.35 Body mass index [BMI] 35.0-35.9, adult; Z80.1 Family history of malignant neoplasm of trachea, bronchus and lung; Z82.49 Family history of ischemic heart disease and other diseases of the circulatory system; Z81.1 Family history of alcohol abuse and dependence; Z83.3 Family history of diabetes mellitus; W19.XXXA Unspecified fall, initial encounter; Y93.89 Activity, other specified; Y92.89 Other specified places as the place of occurrence of the external cause; Y99.8 Other external cause status; Z71.6 Tobacco abuse counseling
CPT/HCPCS: 36415; 71045; 80048; 82306; 82607; 82746; 82962; 83001; 83002; 83735; 84100; 84134; 84146; 84439; 84443; 84481; 86376; 93970; 94640; 94660; 97110; 97116; 97150; 97162; 97166; 97530; 97535; A4565; A6261; J1650; J1815; J2920; J3105; J7512; J7620; J7626; Q0162; Q0163

== ENCOUNTER 2018-10-24 21:45 | Inpatient (IN) | payer MEDICARE, BC ==
[~2018-10-24] VITALS: Ht 167.6 cm; Wt 92.5 kg
[2018-10-25] MEDS ORDERED: IPRATROPIUM BROMIDE (0.02%) 0.5MG/2.5ML NEB HHN STA ×3 (02:21→04:11)
[2018-10-25] MEDS ORDERED: PREDNISONE 20MG TABLET PO STA (02:21)
[2018-10-25] MEDS ORDERED: ALBUTEROL (0.083%) 2.5MG/3ML NEB HHN STA ×3 (02:21→04:11)
[2018-10-25 02:47] LABS: HEMATOCRIT. 43.3 % (36.0-48.0); HEMOGLOBIN. 14.1 g/dL (12.0-16.0); MEAN CORPUSCULAR HEMOGLOBIN 28.1 pg (28.0-32.0); MEAN CORPUSCULAR VOLUME 86.4 fL (81.0-99.0); MEAN PLATELET VOLUME 8.3 fl (7.4-10.4); PLATELET 253 x1000/uL (130-400); RED BLOOD CELL COUNT 5.01 mill/uL (4.2-5.4); RED CELL DISTRIBUTION WIDTH 15.7 % (11.6-14.6)
[2018-10-25 03:09] LABS: CHLORIDE 108 mEq/L (98-107)
[2018-10-25] MEDS ORDERED: MAGNESIUM 2 G PREMIX 50 ML IV ONE (03:45)
[2018-10-25] MEDS ORDERED: LEVOFLOXACIN 750MG PREMIX 150 ML IV ONE (03:45)
[2018-10-25 04:14] LABS: PLATELET ESTIMATE NORMAL
[2018-10-25] MEDS ORDERED: ONDANSETRON HCL 4MG/2ML INJ IV PRN (11:30)
[2018-10-25] MEDS ORDERED: NA PHOS,M-B/NA PHOS,DI-BA ENEMA 118ML PR PRN (11:30)
[2018-10-25] MEDS ORDERED: ACETAMINOPHEN 325MG TABLET PO PRN (11:30)
[2018-10-25] MEDS ORDERED: GUAIFENESIN 200MG/10ML SUGAR FREE UDC PO PRN (11:30)
[2018-10-25] MEDS ORDERED: CLONIDINE 0.1MG TABLET PO PRN (11:30)
[2018-10-25] MEDS ORDERED: IPRATROPIUM/ALBUTEROL 0.5-3(2.5)MG/3ML NEB INH PRN (11:30)
[2018-10-25] MEDS ORDERED: NITROGLYCERIN 0.4MG TABLET SL SL PRN (11:30)
[2018-10-25] MEDS ORDERED: MAGNESIUM/ALUMINUM HYDROXIDE/SIMETHICONE 30ML UDC PO PRN (11:30)
[2018-10-25] MEDS: DILTIAZEM HCL 60MG TABLET PO SCH ×2 (12:00→21:41)
[2018-10-25] MEDS: ENOXAPARIN 40MG/0.4ML SYR SUBCUT SCH (12:30)
[2018-10-25] MEDS: GUAIFENESIN/DM 600MG/30MG ER TAB 12HR PO SCH ×2 (13:30→21:40)
[2018-10-25] MEDS: METHYLPREDNISOLONE SOD SUCC 125 MG/2 ML VIAL IV SCH ×2 (14:00→21:40)
[2018-10-25] MEDS ORDERED: POTASSIUM CHLORIDE 20MEQ TABLET SR PO ONE (14:15)
[2018-10-25] MEDS: TRAMADOL 50MG TABLET PO PRN (18:40)
[2018-10-25] MEDS ORDERED: POTASSIUM CHLORIDE 20MEQ TABLET SR PO NR (21:18)
[2018-10-25] MEDS: FAMOTIDINE 20MG TABLET PO SCH (21:40)
[2018-10-25] MEDS: ZOLPIDEM TARTRATE 5MG TABLET PO PRN (21:41)
[2018-10-25 21:51] VITALS: BP 150/75
[2018-10-25 22:10] VITALS: BP 150/75
[2018-10-25] MEDS ORDERED: LIDO700A30 TP (22:45)
[2018-10-25] MEDS ORDERED: AMLO5TAB88 PO (22:45)
[2018-10-25] MEDS ORDERED: MONT10TA21 PO (22:45)
[2018-10-25] MEDS ORDERED: LOSA50TA20 PO (22:45)
[2018-10-25] MEDS ORDERED: VENL-179 PO (22:45)
[2018-10-26] VITALS: BP 148/75
[2018-10-26] MEDS: IPRATROPIUM/ALBUTEROL 0.5-3(2.5)MG/3ML NEB HHN SCH ×6 (02:05→20:46)
[2018-10-26 04:00] VITALS: BP 150/60
[2018-10-26] MEDS ORDERED: LEVOFLOXACIN 500MG PREMIX 100 ML IV SCH (05:00)
[2018-10-26] MEDS: METHYLPREDNISOLONE SOD SUCC 125 MG/2 ML VIAL IV SCH ×3 (05:24→22:01)
[2018-10-26] MEDS: DILTIAZEM HCL 60MG TABLET PO SCH ×4 (05:24→23:37)
[2018-10-26 08:00] VITALS: BP 123/69
[2018-10-26] MEDS: ASPIRIN 325MG EC TABLET PO SCH (08:30)
[2018-10-26] MEDS: GUAIFENESIN/DM 600MG/30MG ER TAB 12HR PO SCH ×2 (08:32→22:01)
[2018-10-26] MEDS: DOCUSATE SODIUM 100MG CAPSULE PO PRN (08:32)
[2018-10-26] MEDS: TRAMADOL 50MG TABLET PO PRN ×2 (08:32→15:22)
[2018-10-26] MEDS: FAMOTIDINE 20MG TABLET PO SCH ×2 (08:33→22:01)
[2018-10-26] MEDS: ENOXAPARIN 40MG/0.4ML SYR SUBCUT SCH (08:33)
[2018-10-26 12:00] VITALS: BP 118/74
[2018-10-26] MEDS: VENLAFAXINE HCL 37.5MG TABLET PO SCH (12:11)
[2018-10-26] MEDS: NICOTINE 14MG PATCH TD SCH (12:12)
[2018-10-26 16:00] VITALS: BP 118/61
[2018-10-26 20:00] VITALS: BP 127/60
[2018-10-26] MEDS: ZOLPIDEM TARTRATE 5MG TABLET PO PRN (22:01)
[2018-10-26] MEDS: MONTELUKAST SODIUM 10MG TABLET PO SCH (22:01)
[2018-10-26] MEDS: DIPHENHYDRAMINE 50MG/ML VIAL IV PRN (23:34)
[2018-10-27] VITALS: BP 146/69
[2018-10-27] MEDS: IPRATROPIUM/ALBUTEROL 0.5-3(2.5)MG/3ML NEB HHN SCH ×6 (00:52→22:00)
[2018-10-27 04:00] VITALS: BP 131/70
[2018-10-27] MEDS: DILTIAZEM HCL 60MG TABLET PO SCH ×3 (05:49→17:41)
[2018-10-27] MEDS: METHYLPREDNISOLONE SOD SUCC 125 MG/2 ML VIAL IV SCH (05:49)
[2018-10-27] MEDS ORDERED: LEVOFLOXACIN 500MG PREMIX 100 ML IV SCH ×2 (06:00→19:30)
[2018-10-27 08:00] VITALS: BP 143/74
[2018-10-27] MEDS: ASPIRIN 325MG EC TABLET PO SCH (08:51)
[2018-10-27] MEDS: ENOXAPARIN 40MG/0.4ML SYR SUBCUT SCH (08:51)
[2018-10-27] MEDS: DOCUSATE SODIUM 100MG CAPSULE PO PRN (08:51)
[2018-10-27] MEDS: TRAMADOL 50MG TABLET PO PRN ×2 (08:52→17:42)
[2018-10-27] MEDS: FAMOTIDINE 20MG TABLET PO SCH ×2 (08:52→21:17)
[2018-10-27] MEDS: GUAIFENESIN/DM 600MG/30MG ER TAB 12HR PO SCH (08:53)
[2018-10-27] MEDS: VENLAFAXINE HCL 37.5MG TABLET PO SCH (08:54)
[2018-10-27] MEDS: NICOTINE 14MG PATCH TD SCH (08:57)
[2018-10-27 12:00] VITALS: BP 145/77
[2018-10-27 16:00] VITALS: BP 133/67
[2018-10-27 16:05] LABS: *AMPHETAMINES SCREEN URINE NEGATIVE (NEGATIVE); *BARBITURATES SCREEN URINE NEGATIVE (NEGATIVE); *BENZODIAZEPINES SCREEN URINE NEGATIVE (NEGATIVE)
[2018-10-27 16:06] LABS: *COCAINE SCREEN URINE PRESUMTIVE POSITIVE (NEGATIVE); CANNABINOID URINE SCREEN NEGATIVE (NEGATIVE); METHADONE URINE SCREEN NEGATIVE (NEGATIVE); OPIATES URINE SCREEN PRESUMTIVE POSITIVE (NEGATIVE); PHENCYCLIDINE URINE SCREEN NEGATIVE (NEGATIVE)
[2018-10-27 20:00] VITALS: BP 131/60
[2018-10-27] MEDS: MONTELUKAST SODIUM 10MG TABLET PO SCH (21:17)
[2018-10-27] MEDS: ATORVASTATIN CALCIUM 40MG TABLET PO SCH (21:17)
[2018-10-27] MEDS: GUAIFENESIN 600MG ER TABLET PO SCH (21:17)
[2018-10-27] MEDS: DIPHENHYDRAMINE 50MG/ML VIAL IV PRN (21:18)
[2018-10-27] MEDS: METHYLPREDNISOLONE SOD SUCC 40 MG/ML VIAL IV SCH (21:18)
[2018-10-28] VITALS: BP 141/78
[2018-10-28] MEDS: DILTIAZEM HCL 60MG TABLET PO SCH ×4 (00:56→17:04)
[2018-10-28 04:00] VITALS: BP 104/66
[2018-10-28] MEDS: IPRATROPIUM/ALBUTEROL 0.5-3(2.5)MG/3ML NEB HHN SCH ×5 (05:21→21:31)
[2018-10-28] MEDS: METHYLPREDNISOLONE SOD SUCC 40 MG/ML VIAL IV SCH ×3 (06:08→21:26)
[2018-10-28 08:00] VITALS: BP 146/80
[2018-10-28] MEDS: VENLAFAXINE HCL 37.5MG TABLET PO SCH (08:09)
[2018-10-28] MEDS: FAMOTIDINE 20MG TABLET PO SCH ×2 (08:09→21:26)
[2018-10-28] MEDS: ASPIRIN 325MG EC TABLET PO SCH (08:09)
[2018-10-28] MEDS: NICOTINE 14MG PATCH TD SCH (08:10)
[2018-10-28] MEDS: ENOXAPARIN 40MG/0.4ML SYR SUBCUT SCH (08:11)
[2018-10-28] MEDS: GUAIFENESIN 600MG ER TABLET PO SCH ×2 (08:13→21:26)
[2018-10-28 12:00] VITALS: BP 117/66
[2018-10-28 16:00] VITALS: BP 166/71
[2018-10-28] MEDS ORDERED: LEVOFLOXACIN 500MG PREMIX 100 ML IV SCH (18:00)
[2018-10-28 20:00] VITALS: BP 135/64
[2018-10-28] MEDS: MONTELUKAST SODIUM 10MG TABLET PO SCH (21:26)
[2018-10-28] MEDS: ATORVASTATIN CALCIUM 40MG TABLET PO SCH (21:26)
[2018-10-28] MEDS: ZOLPIDEM TARTRATE 5MG TABLET PO PRN (23:45)
[2018-10-29] VITALS: BP 133/59
[2018-10-29] MEDS: DILTIAZEM HCL 60MG TABLET PO SCH ×3 (00:02→12:58)
[2018-10-29] MEDS: IPRATROPIUM/ALBUTEROL 0.5-3(2.5)MG/3ML NEB HHN SCH ×5 (01:10→15:44)
[2018-10-29 04:00] VITALS: BP 147/73
[2018-10-29] MEDS: METHYLPREDNISOLONE SOD SUCC 40 MG/ML VIAL IV SCH (06:25)
[2018-10-29 08:00] VITALS: BP 158/69
[2018-10-29] MEDS: GUAIFENESIN 600MG ER TABLET PO SCH (09:26)
[2018-10-29] MEDS: VENLAFAXINE HCL 37.5MG TABLET PO SCH (09:26)
[2018-10-29] MEDS: ASPIRIN 325MG EC TABLET PO SCH (09:26)
[2018-10-29] MEDS: FAMOTIDINE 20MG TABLET PO SCH (09:26)
[2018-10-29] MEDS: ENOXAPARIN 40MG/0.4ML SYR SUBCUT SCH (09:27)
[2018-10-29] MEDS: DIPHENHYDRAMINE 50MG/ML VIAL IV PRN (11:48)
[2018-10-29 12:00] VITALS: BP 164/67
[2018-10-29 15:56] VITALS: BP 145/80
[2018-10-29] MEDS ORDERED: PREDNISONE 20MG TABLET PO SCH (18:10)
[2018-10-30] MEDS ORDERED: LEVOFLOXACIN 500MG TABLET PO SCH (11:00)
== END 2018-10-29 17:13 | disposition home health service (06) | DRG 205 ==
LOC: ER 21:45 → 7WST 10-25 01:14 → SUPCPDRO 10-25 11:29 → ENRESERV 10-25 20:14
PROVIDERS: ADMIT Internal Medicine; ATTEND Internal Medicine
DX: J68.0 Bronchitis and pneumonitis due to chemicals, gases, fumes and vapors (principal); J96.00 Acute respiratory failure, unspecified whether with hypoxia or hypercapnia; J44.1 Chronic obstructive pulmonary disease with (acute) exacerbation; J45.901 Unspecified asthma with (acute) exacerbation; E87.6 Hypokalemia; E78.5 Hyperlipidemia, unspecified; F14.10 Cocaine abuse, uncomplicated; H26.9 Unspecified cataract; I10 Essential (primary) hypertension; M19.90 Unspecified osteoarthritis, unspecified site; J06.9 Acute upper respiratory infection, unspecified; F17.210 Nicotine dependence, cigarettes, uncomplicated; Z71.6 Tobacco abuse counseling
CPT/HCPCS: 36415; 71045; 80061; 80305; 82962; 83036; 83880; 93005; 93970; 94640; 96374; 97162; 97166; 99285; J1200; J1650; J1956; J2920; J2930; J3475; J7050; J7512; J7611; J7620